=== PATIENT | female | born 1960 | race Hispanic/Latino ===

== ENCOUNTER 2021-06-03 14:27 | Emergency (ER) | payer OTHER ==
[2021-06-03] MEDS ORDERED: SODIUM CHLORIDE 0.9% 1000 ML 1,000 ML IV ONE (14:38)
[2021-06-03] MEDS ORDERED: METOCLOPRAMIDE 10 MG/2 ML INJ IV ONE (14:38)
--- NOTE | 2021-06-03 14:40 | Emergency Department Report ---
<KACIE ABDI - Last Filed: 06/03/21 15:22> ED General Adult HPI - General Chief complaint: Chest Pain Stated complaint: LIGHT HEADED Time Seen by Provider: 06/03/21 14:31 Source: patient Mode of arrival: Ambulatory Limitations: No Limitations - History of Present Illness Initial comments: Patient presents by private auto with multiple complaints. She states she just has not felt well for the last several days. She was in [place] with her . She started to feel generalized malaise while she was in [place]. Over the last couple of days, she has had no energy. She has been anorexic with no appetite. She sat in bed most of the day yesterday because she just did not feel well. She has had nausea without vomiting. There is no diarrhea. She has not had any cough but has had some nasal congestion and postnasal drip. There is no fever. She has no muscle aches or body aches. Patient denies abdominal pain. There is no urinary symptoms. She states that her daughter had tested positive for coronavirus previously. She has had 2 - test within the last several weeks. The first was a rapid test, the other PCR. She has had no influenza exposure. She was not vaccinated against influenza. Patient states that her chest did not feel right. She described it as some heaviness. This chest discomfort is not exertional, positional, or pleuritic. She states she just does not know what is going on. She felt very anxious yesterday. On the flight home today, a 1 hour flight, she felt very anxious as well. They ultimately decided to come here for evaluation. She has never had symptoms of this nature before. - Related Data Previous Rx's Medication Instructions Recorded Last Taken Type Albuterol Sulfate [Proventil Hfa] 2 puff IH 4XD #1 inh 06/03/21 Unknown Rx Guaifenesin/Pseudoephedrne HCl 1 each PO BID #20 tab 06/03/21 Unknown Rx [Mucinex D ER Tablet] Ondansetron (Nf) [Zofran TAB] 8 mg PO Q8HR PRN #20 tablet 06/03/21 Unknown Rx Allergies Allergy/AdvReac Type Severity Reaction Status Date / Time No Known Allergies Allergy Verified 06/03/21 15:07 ED Review of Systems Comment: All other systems reviewed and negative Constitutional: denies: fever Eyes: denies: vision change ENT: throat pain (Intermittently for several weeks) Respiratory: see HPI. denies: cough Cardiovascular: as per HPI Endocrine: denies: unexplained weight loss Gastrointestinal: as per HPI, nausea. denies: diarrhea Genitourinary: denies: dysuria Musculoskeletal: denies: back pain Skin: denies: rash Neurological: denies: headache Hematological/Lymphatic: denies: easy bruising ED Past Medical Hx - Past Medical History Previous Medical History?: Yes Hx Hypertension: Yes Additional medical history: Thyroid disorder - Family History Family history: hypertension - Medications Home Medications: Home Medications Medication Instructions Recorded Confirmed Last Taken Type Albuterol Sulfate [Proventil Hfa] 2 puff IH 4XD #1 inh 06/03/21 Unknown Rx Guaifenesin/Pseudoephedrne HCl 1 each PO BID #20 tab 06/03/21 Unknown Rx [Mucinex D ER Tablet] Ondansetron (Nf) [Zofran TAB] 8 mg PO Q8HR PRN #20 tablet 06/03/21 Unknown Rx ED Physical Exam - General Limitations: No Limitations, Other (Pulse ox noted and normal) General appearance: alert, in no apparent distress - Head Head exam: Present: atraumatic, normocephalic - Eye Eye exam: Present: normal appearance, EOMI. Absent: scleral icterus - ENT ENT exam: Present: normal orophraynx, TM's normal bilaterally, normal external ear exam - Neck Neck exam: Present: normal inspection. Absent: meningismus - Respiratory Respiratory exam: Present: normal lung sounds bilaterally. Absent: respiratory distress - Cardiovascular Cardiovascular Exam: Present: normal rhythm, bradycardia - GI/Abdominal GI/Abdominal exam: Present: soft. Absent: distended, tenderness - Extremities Exam Extremities exam: Absent: calf tenderness - Back Exam Back exam: Absent: CVA tenderness (R), CVA tenderness (L) - Neurological Exam Neurological exam: Present: alert, oriented X3, normal gait. Absent: motor sensory deficit - Psychiatric Psychiatric exam: Present: normal affect, normal mood - Skin Skin exam: Present: warm, dry ED Course - Reevaluation(s) Reevaluation #1: 06/03/21 14:40 Labs and x-rays ordered. Reevaluation #2: 06/03/21 15:22 EKG and x-ray have been noted. Labs are pending. ED Medical Decision Making - Lab Data Rhythm strip: Sinus bradycardia without ectopy. Monitor observe 10 seconds. - EKG Data -: EKG Interpreted by Me - EKG Data When compared to previous EKG there are: previous EKG unavailable 06/03/21 15:22 1516-EKG shows normal sinus rhythm at 49. This is bradycardic in nature. Intervals normal including a QRS of 100 and a QT corrected of 431. Patient has no ST elevation to suggest infarct. There is early R wave progression with biphasic T waves in V1 and V2. There is no old EKG for comparison per there is no ST elevation suggestive of STEMI per there is no ST depression suggestive of ischemia. - Radiology Data Radiology results: report reviewed - Medical Decision Making Patient presents with generalized malaise and a constellation of symptoms that could certainly be related to a viral illness. She has no hypoxia or tac hycardia. She has no pleuritic chest pain. I do not believe this represents PE. She has no pulse deficit or wide mediastinum to suggest aortic dissection. Is no evidence of STEMI on EKG. Labs are currently pending. This certainly could be coronavirus or some other viral infection given her history. Critical Care Time: No ED Disposition Clinical Impression: Chest tightness, Nasal congestion, Dehydration Disposition: HOME / SELF CARE / HOMELESS Is pt being admited?: No Condition: Stable Instructions: Nonspecific Chest Pain, Adult, Pain Without a Known Cause Additional Instructions: Drink plenty water. Return for problems. Follow-up with your regular doctor for recheck and further management. Use Tylenol Advil for fever and pain. Consider a repeat coronavirus test or flu testing. Prescriptions: Guaifenesin/Pseudoephedrne HCl [Mucinex D ER Tablet] 1 each PO BID #20 tab Albuterol Sulfate [Proventil Hfa] 2 puff IH 4XD #1 inh Ondansetron (Nf) [Zofran TAB] 8 mg PO Q8HR PRN #20 tablet PRN Reason: Nausea Referrals: PRIMARY CARE, [Referring] - 3-5 Days <RICHARD MORRIS - Last Filed: 06/03/21 16:49> ED Review of Systems ROS: Stated complaint: LIGHT HEADED Other details as noted in HPI ED Course Vital Signs 06/03/21 06/03/21 06/03/21 14:31 15:12 15:23 Temperature 98.1 F 98.6 F Pulse Rate 55 L Respiratory 16 10 L Rate Blood Pressure 153/83 [Right] O2 Sat by Pulse 98 99 Oximetry - Reevaluation(s) Reevaluation #3: 06/03/21 16:49 I reviewed labs. Chemistry notable for hyponatremia. Patient is quite active. Clinical impression: Dehydration Patient received normal saline IV bolus. d-dimer cancelled. patient amd family agreed with plan of care. ED Medical Decision Making - Lab Data Result diagrams: 06/03/21 Unknown 06/03/21 14:38 Critical care attestation.: If time is entered above; I have spent that time in minutes in the direct care of this critically ill patient, excluding procedure time. ED Disposition Is pt being admited?: No Does the pt Need Aspirin: No
[2021-06-03] MEDS ORDERED: SODIUM CHLORIDE 0.9% 1000 ML 1,000 ML ONE (15:08)
--- NOTE | 2021-06-03 15:16 | XRay Report ---
CHEST 2 VIEWS INDICATION / CLINICAL INFORMATION: cough STUDY TIME: 1456 COMPARISON: None available. FINDINGS: SUPPORT DEVICES: None. HEART / MEDIASTINUM: No significant abnormality. LUNGS / PLEURA: No significant acute pulmonary or pleural abnormality. No pneumothorax. ADDITIONAL FINDINGS: No significant additional findings. Signer Name: Davie Benito MD Signed: 06/03/2021 3:12 PM Workstation Name: [id number]
[2021-06-03 15:56] LABS: Hematocrit 39.7 % (30.3-42.9); Hemoglobin 12.8 gm/dl (10.1-14.3); Mean Corpuscular HGB Conc 32 % (30-34); Mean Corpuscular Volume 90 fl (79-97); Platelet Count 200 K/mm3 (140-440); Red Blood Count 4.43 M/mm3 (3.65-5.03); Red Cell Distribution Width 13.2 % (13.2-15.2)
[2021-06-03 16:22] LABS: Alanine Aminotransferase 13 units/L (7-56); Albumin 4.3 g/dL (3.9-5); BUN/Creatinine Ratio 14; Blood Urea Nitrogen 11 mg/dL (7-17); Calcium 9.3 mg/dL (8.4-10.2); Hemolysis Index 63
[2021-06-03 16:23] LABS: C-Reactive Protein < 0.03 mg/dL (0.00-1.30)
[2021-06-03 16:55] VITALS: BP 154/78
--- NOTE | 2021-06-04 11:39 | Electrocardiograph Report ---
[facility] Test Date: 2021-06-03 Test Time: 15:16:57 Pat Name: KEILA DAN Department: Room: Gender: F Manufacturing Finance Manager: ARPAN : 1960 Requested By: KACIE ABDI Order Number: [id number] Reading MD: Mauricio Wilkerson Measurements Intervals [place] Rate: 49 P: 57 LA: 168 QRS: 63 QRSD: 101 T: 57 QT: 474 QTc: 431 Interpretive Statements Sinus bradycardia No previous ECG available for comparison Electronically Signed On 06-04-2021 11:39:39 EST by Mauricio Wilkerson
== END 2021-06-03 16:56 | disposition home or self-care (01) ==
LOC: ED 14:27
DX: R07.89 Other chest pain (principal); R09.81 Nasal congestion; E86.0 Dehydration; I10 Essential (primary) hypertension; Z79.899 Other long term (current) drug therapy
CPT/HCPCS: 36415; 71046; 80053; 82728; 83615; 83690; 84145; 84484; 85027; 86140; 93005; 93010; 96361; 96374; 99284; J2765; J7030; Q0162